=== PATIENT | male | born 1975 | race Hispanic/Latino ===

== ENCOUNTER 2017-05-15 10:24 | Inpatient (IN) | payer MEDICAID, OTHER ==
[~2017-05-15] VITALS: Ht 177.8 cm; Wt 117.9 kg
[2017-05-15] VITALS (15 sets, daily range): BP systolic 55–150; BP diastolic 32–89
[2017-05-15 10:47] LABS: BASOPHILS % (AUTO) 0.2 % (0.0-5.0); EOSINOPHILS % (AUTO) 1.1 % (0.0-8.0); HEMATOCRIT 25.6 % (42-54); LYMPHOCYTES % (AUTO) 33.1 % (21.0-51.0); MEAN CORPUSCULAR HEMOGLOBIN 23.3 pg (27.0-33.0); MEAN CORPUSCULAR HGB CONC 31.2 g/dL (32.0-36.0); MEAN CORPUSCULAR VOLUME 74.8 fL (79-99); MONOCYTES % (AUTO) 6.2 % (3.0-13.0); NEUTROPHILS % (AUTO) 59.4 % (40.0-77.0); PLATELET COUNT (AUTO) 75 K/uL (130-400); RED BLOOD CELL COUNT(AUTO) 3.43 MIL/uL (4.50-6.20); RED CELL DISTRIBUTION WIDTH 17.9 % (11.0-15.5); WHITE BLOOD COUNT (AUTO) 4.6 K/uL (4.8-10.8)
[2017-05-15] MEDS ORDERED: PHYTONADIONE 10 MG/1 ML AMP ONE (10:56)
[2017-05-15 10:58] LABS: CREATININE 0.8 mg/dL (0.5-1.5); POTASSIUM 4.1 mmol/L (3.5-5.1)
[2017-05-15 11:11] LABS: ALBUMIN 2.1 g/dL (3.5-5.0); BILIRUBIN,TOTAL 0.7 mg/dL (0.2-1.0); CREATINE KINASE MB 2.5 ng/mL (0.5-3.6); TOTAL PROTEIN, SERUM 6.3 g/dL (6.0-8.3)
[2017-05-15] MEDS ORDERED: SUCCINYLCHOLINE CHLORIDE 20 MG/ML 10 ML VIAL IVP ONE (12:00)
[2017-05-15] MEDS ORDERED: ROCURONIUM BROMIDE 10MG/1ML 5ML VL IV ONE (12:00)
[2017-05-15] MEDS ORDERED: ETOMIDATE 2 MG/ML 10 ML VIAL IVP ONE (12:00)
[2017-05-15] MEDS ORDERED: OCTREOTIDE ACETATE 100 MCG/ML AMP ONE (12:40)
[2017-05-15] MEDS ORDERED: ONDANSETRON HCL 4 MG/2 ML VIAL ONE ×2 (12:43→13:26)
[2017-05-15 12:51] LABS: INR 1.39 (0.85-1.15); PARTIAL THROMBOPLASTIN TIME 25.5 SEC (26.3-35.5); PROTHROMBIN TIME 14.5 SEC (9.6-11.6)
[2017-05-15] MEDS ORDERED: METOPROLOL TARTRATE 1 MG/ML 5ML VIAL IV ONE (12:56)
[2017-05-15 12:59] LABS: HEMATOCRIT 24.5 % (42-54)
[2017-05-15] MEDS ORDERED: SODIUM CHLORIDE 0.9% 50 ML IV ONE (14:02)
[2017-05-15] MEDS ORDERED: CEFTRIAXONE SODIUM 1 GM ONE (14:02)
[2017-05-15] MEDS ORDERED: PROPOFOL 1000 MG/100 ML 100 ML IV ONE (14:32)
[2017-05-15] MEDS ORDERED: PHYTONADIONE 10 MG/1 ML AMP IV ONE (16:00)
[2017-05-15] MEDS ORDERED: THIAMINE HCL 100 MG/ML 2ML VIAL IVP SCH (16:15)
[2017-05-15] MEDS: WATER FOR INJECTION,STERILE 5 ML VIAL INJ SCH (16:30)
[2017-05-15] MEDS ORDERED: PHYTONADIONE 10 MG in SODIUM CHLORIDE 0.9% 50 ML IV SCH (16:30)
[2017-05-15] MEDS: CEFTRIAXONE SODIUM 1 GM IVP SCH (16:30)
[2017-05-15] MEDS: MIDAZOLAM 100MG-0.9% NS 100ML 100 ML IV PRN (16:56)
[2017-05-15] MEDS: FENTANYL 2500MCG+NS 250ML 250 ML IV PRN (16:56)
[2017-05-15] MEDS: PANTOPRAZOLE SODIUM 80 MG in SODIUM CHLORIDE 0.9% 100 ML IV SCH ×2 (16:57→21:55)
[2017-05-15] MEDS: OCTREOTIDE ACETATE 1,000 MCG in SODIUM CHLORIDE 0.9% 95 ML IV SCH (16:57)
[2017-05-15] MEDS: SODIUM CHLORIDE 0.9% 1000ML 1,000 ML IV SCH (16:58)
[2017-05-15 18:20] LABS: HEMATOCRIT 21.8 % (42-54); MEAN CORPUSCULAR HEMOGLOBIN 25.6 pg (27.0-33.0); MEAN CORPUSCULAR HGB CONC 31.7 g/dL (32.0-36.0); MEAN CORPUSCULAR VOLUME 80.7 fL (79-99); PLATELET COUNT (AUTO) 69 K/uL (130-400); RED CELL DISTRIBUTION WIDTH 17.8 % (11.0-15.5)
[2017-05-15] MEDS: FOLIC ACID 5 MG/ML 10 ML VIAL IV SCH (18:48)
[2017-05-15] MEDS: NOREPINEPHRINE 4MG/NS 250ML 250 ML IV SCH ×2 (18:53→22:08)
[2017-05-15] MEDS ORDERED: SODIUM CHLORIDE 0.9% 500ML 500 ML IV ONE (21:06)
[2017-05-16] VITALS (26 sets, daily range): BP systolic 86–119; BP diastolic 49–69
[2017-05-16] MEDS: SODIUM CHLORIDE 0.9% 1000ML 1,000 ML IV SCH (01:21)
[2017-05-16 01:55] LABS: HEMATOCRIT 28.2 % (42-54); MEAN CORPUSCULAR HGB CONC 31.2 g/dL (32.0-36.0); MEAN CORPUSCULAR VOLUME 83.3 fL (79-99); PLATELET COUNT (AUTO) 77 K/uL (130-400); RED BLOOD CELL COUNT(AUTO) 3.39 MIL/uL (4.50-6.20); RED CELL DISTRIBUTION WIDTH 17.4 % (11.0-15.5); WHITE BLOOD COUNT (AUTO) 11.7 K/uL (4.8-10.8)
[2017-05-16 03:46] LABS: HEMATOCRIT 27.1 % (42-54); MEAN CORPUSCULAR HGB CONC 33.6 g/dL (32.0-36.0); MEAN CORPUSCULAR VOLUME 80.2 fL (79-99); PLATELET COUNT (AUTO) 84 K/uL (130-400); RED BLOOD CELL COUNT(AUTO) 3.38 MIL/uL (4.50-6.20); RED CELL DISTRIBUTION WIDTH 17.6 % (11.0-15.5); WHITE BLOOD COUNT (AUTO) 12.5 K/uL (4.8-10.8)
[2017-05-16 04:08] LABS: INR 1.35 (0.85-1.15); PARTIAL THROMBOPLASTIN TIME 28.1 SEC (26.3-35.5); PROTHROMBIN TIME 14.1 SEC (9.6-11.6)
[2017-05-16 04:12] LABS: ALBUMIN 2.3 g/dL (3.5-5.0); BILIRUBIN,TOTAL 1.6 mg/dL (0.2-1.0); CREATININE 1.3 mg/dL (0.5-1.5); TOTAL PROTEIN, SERUM 5.9 g/dL (6.0-8.3)
[2017-05-16 04:15] LABS: POTASSIUM 6.6 mmol/L (3.5-5.1)
[2017-05-16 05:38] LABS: ABG BASE EXCESS -8.8 mmol/L (-2.0-3.0); ABG HCO3 17.1 mmol/L (21.0-28.0); ABG OXYGEN SATURATION 98.2 % (95.0-99.0); ABG PCO2 37 mmHg (35-48)
[2017-05-16] MEDS: DEXTROSE 50%-WATER 25 GM/50 ML VIAL IV SCH (06:00)
[2017-05-16] MEDS ORDERED: SODIUM BICARB 50MEQ 50ML VIAL IV SCH (06:15)
[2017-05-16] MEDS ORDERED: SODIUM BICARB 50MEQ 50ML VIAL ONE (06:21)
[2017-05-16] MEDS ORDERED: DEXTROSE 50%-WATER 50 ML DISP.SYRIN IV ONE (06:22)
[2017-05-16] MEDS: INSULIN HUMULIN R 100 UNIT/ML 3ML IV SCH (06:32)
[2017-05-16] MEDS: NOREPINEPHRINE 4MG/NS 250ML 250 ML IV SCH ×2 (07:07→20:49)
[2017-05-16 07:45] LABS: POTASSIUM 6.6 mmol/L (3.5-5.1)
[2017-05-16] MEDS ORDERED: SODIUM POLYSTYRENE SULFONATE 15 GM/60 ML ML RC ONE (08:15)
[2017-05-16] MEDS ORDERED: CALCIUM GLUCONATE 1 GM/10 ML VIAL IV ONE (08:30)
[2017-05-16] MEDS ORDERED: SODIUM BICARB 50MEQ 50ML VIAL IV ONE (08:30)
[2017-05-16] MEDS ORDERED: CALCIUM GLUCONATE 1 GM in SODIUM CHLORIDE 0.9% 50 ML IV SCH (08:30)
[2017-05-16] MEDS ORDERED: DEXTROSE 5 % AND 0.9 % NACL 1,000 ML IV ONE (08:30)
[2017-05-16] MEDS: DEXTROSE 5 %-0.45 % NACL 1,000 ML IV SCH ×2 (08:33→21:58)
[2017-05-16 08:40] LABS: HEMATOCRIT 25.1 % (42-54); MEAN CORPUSCULAR HEMOGLOBIN 25.6 pg (27.0-33.0); MEAN CORPUSCULAR HGB CONC 32.2 g/dL (32.0-36.0); MEAN CORPUSCULAR VOLUME 79.6 fL (79-99); PLATELET COUNT (AUTO) 76 K/uL (130-400); RED BLOOD CELL COUNT(AUTO) 3.16 MIL/uL (4.50-6.20); RED CELL DISTRIBUTION WIDTH 17.5 % (11.0-15.5); WHITE BLOOD COUNT (AUTO) 11.8 K/uL (4.8-10.8)
[2017-05-16] MEDS: FOLIC ACID 5 MG/ML 10 ML VIAL IV SCH (09:10)
[2017-05-16] MEDS: PANTOPRAZOLE SODIUM 80 MG in SODIUM CHLORIDE 0.9% 100 ML IV SCH ×2 (09:10→20:55)
[2017-05-16] MEDS ORDERED: COMPOUND IV REFRIGERATED 1 EACH IVSOLN MISC PRN (09:30)
[2017-05-16] MEDS ORDERED: GLUCAGON 1MG KIT 1 MG ML IM PRN (11:30)
[2017-05-16] MEDS ORDERED: DEXTROSE 50%-WATER 50 ML DISP.SYRIN IV PRN (11:30)
[2017-05-16] MEDS: INSULIN HUMULIN R 100 UNIT/ML 3ML SQ SCH ×2 (12:09→17:58)
[2017-05-16 12:33] LABS: HEMATOCRIT 23.5 % (42-54); MEAN CORPUSCULAR HEMOGLOBIN 26.5 pg (27.0-33.0); MEAN CORPUSCULAR HGB CONC 33.1 g/dL (32.0-36.0); MEAN CORPUSCULAR VOLUME 80.1 fL (79-99); PLATELET COUNT (AUTO) 94 K/uL (130-400); RED BLOOD CELL COUNT(AUTO) 2.93 MIL/uL (4.50-6.20); RED CELL DISTRIBUTION WIDTH 17.1 % (11.0-15.5); WHITE BLOOD COUNT (AUTO) 13.4 K/uL (4.8-10.8)
[2017-05-16] MEDS: MIDAZOLAM 100MG-0.9% NS 100ML 100 ML IV PRN (13:31)
[2017-05-16] MEDS ORDERED: CEFTRIAXONE 1GM/D5W 50ML 50 ML IV SCH (16:00)
[2017-05-16] MEDS: WATER FOR INJECTION,STERILE 5 ML VIAL INJ SCH (16:02)
[2017-05-16] MEDS: CEFTRIAXONE SODIUM 1 GM IVP SCH (16:02)
[2017-05-16 19:51] LABS: HEMATOCRIT 25.4 % (42-54); MEAN CORPUSCULAR HEMOGLOBIN 26.7 pg (27.0-33.0); MEAN CORPUSCULAR HGB CONC 33.4 g/dL (32.0-36.0); MEAN CORPUSCULAR VOLUME 79.9 fL (79-99); PLATELET COUNT (AUTO) 116 K/uL (130-400); RED BLOOD CELL COUNT(AUTO) 3.18 MIL/uL (4.50-6.20); RED CELL DISTRIBUTION WIDTH 17.9 % (11.0-15.5); WHITE BLOOD COUNT (AUTO) 14.5 K/uL (4.8-10.8)
[2017-05-16] MEDS: OCTREOTIDE ACETATE 1,000 MCG in SODIUM CHLORIDE 0.9% 95 ML IV SCH (20:55)
[2017-05-16] MEDS: FENTANYL 2500MCG+NS 250ML 250 ML IV PRN (22:31)
[2017-05-17] VITALS (24 sets, daily range): BP systolic 97–123; BP diastolic 61–72
[2017-05-17] MEDS: INSULIN HUMULIN R 100 UNIT/ML 3ML SQ SCH ×5 (00:37→23:54)
[2017-05-17 00:52] LABS: HEMATOCRIT 22.4 % (42-54); MEAN CORPUSCULAR HEMOGLOBIN 26.5 pg (27.0-33.0); MEAN CORPUSCULAR HGB CONC 33.3 g/dL (32.0-36.0); MEAN CORPUSCULAR VOLUME 79.5 fL (79-99); PLATELET COUNT (AUTO) 86 K/uL (130-400); RED BLOOD CELL COUNT(AUTO) 2.81 MIL/uL (4.50-6.20); WHITE BLOOD COUNT (AUTO) 12.4 K/uL (4.8-10.8)
[2017-05-17] MEDS: NOREPINEPHRINE 4MG/NS 250ML 250 ML IV SCH ×3 (01:43→11:09)
[2017-05-17 04:11] LABS: BASOPHILS % (AUTO) 0.1 % (0.0-5.0); EOSINOPHILS % (AUTO) 0.9 % (0.0-8.0); LYMPHOCYTES % (AUTO) 15.3 % (21.0-51.0); MEAN CORPUSCULAR HEMOGLOBIN 27.3 pg (27.0-33.0); MEAN CORPUSCULAR HGB CONC 34.6 g/dL (32.0-36.0); MEAN CORPUSCULAR VOLUME 78.8 fL (79-99); MONOCYTES % (AUTO) 14.1 % (3.0-13.0); NEUTROPHILS % (AUTO) 69.6 % (40.0-77.0); PLATELET COUNT (AUTO) 99 K/uL (130-400); RED BLOOD CELL COUNT(AUTO) 2.91 MIL/uL (4.50-6.20); RED CELL DISTRIBUTION WIDTH 18.1 % (11.0-15.5); WHITE BLOOD COUNT (AUTO) 13.2 K/uL (4.8-10.8)
[2017-05-17 04:26] LABS: ALBUMIN 2.1 g/dL (3.5-5.0); BILIRUBIN,TOTAL 1.3 mg/dL (0.2-1.0); CREATININE 1.3 mg/dL (0.5-1.5); POTASSIUM 4.8 mmol/L (3.5-5.1); TOTAL PROTEIN, SERUM 5.6 g/dL (6.0-8.3)
[2017-05-17] MEDS: DEXTROSE 50%-WATER 25 GM/50 ML VIAL IV SCH (05:33)
[2017-05-17] MEDS: INSULIN HUMULIN R 100 UNIT/ML 3ML IV SCH (05:33)
[2017-05-17] MEDS: PANTOPRAZOLE SODIUM 80 MG in SODIUM CHLORIDE 0.9% 100 ML IV SCH ×2 (05:33→14:50)
[2017-05-17 07:02] LABS: INR 1.34 (0.85-1.15); PARTIAL THROMBOPLASTIN TIME 28.9 SEC (26.3-35.5)
[2017-05-17] MEDS: FOLIC ACID 5 MG/ML 10 ML VIAL IV SCH (09:12)
[2017-05-17] MEDS: MIDAZOLAM 100MG-0.9% NS 100ML 100 ML IV PRN ×2 (09:13→19:51)
[2017-05-17] MEDS: DEXTROSE 5 %-0.45 % NACL 1,000 ML IV SCH ×2 (11:06→23:54)
[2017-05-17] MEDS: LACTULOSE 20 GM/30 ML UDCUP NG SCH ×2 (15:45→22:12)
[2017-05-17] MEDS: WATER FOR INJECTION,STERILE 5 ML VIAL INJ SCH (15:57)
[2017-05-17] MEDS: CEFTRIAXONE SODIUM 1 GM IVP SCH (15:57)
[2017-05-17] MEDS: FENTANYL 2500MCG+NS 250ML 250 ML IV PRN (19:51)
[2017-05-18] VITALS (24 sets, daily range): BP systolic 101–137; BP diastolic 53–77
[2017-05-18] MEDS: PANTOPRAZOLE SODIUM IV SCH ×2 (00:45→09:18)
[2017-05-18] MEDS: DEXTROSE 5% IV SCH ×2 (00:45→09:18)
[2017-05-18] MEDS: WATER IV SCH ×2 (00:45→09:18)
[2017-05-18 03:27] LABS: BASOPHILS % (AUTO) 0.1 % (0.0-5.0); EOSINOPHILS % (AUTO) 0.9 % (0.0-8.0); HEMATOCRIT 22.1 % (42-54); LYMPHOCYTES % (AUTO) 15.5 % (21.0-51.0); MEAN CORPUSCULAR HEMOGLOBIN 27.4 pg (27.0-33.0); MEAN CORPUSCULAR HGB CONC 33.9 g/dL (32.0-36.0); MEAN CORPUSCULAR VOLUME 80.8 fL (79-99); MONOCYTES % (AUTO) 12.7 % (3.0-13.0); NEUTROPHILS % (AUTO) 70.8 % (40.0-77.0); PLATELET COUNT (AUTO) 72 K/uL (130-400); RED BLOOD CELL COUNT(AUTO) 2.74 MIL/uL (4.50-6.20); RED CELL DISTRIBUTION WIDTH 18.6 % (11.0-15.5); WHITE BLOOD COUNT (AUTO) 9.5 K/uL (4.8-10.8)
[2017-05-18 03:52] LABS: CREATININE 1.5 mg/dL (0.5-1.5); POTASSIUM 4.4 mmol/L (3.5-5.1)
[2017-05-18] MEDS: LACTULOSE 20 GM/30 ML UDCUP NG SCH ×3 (05:33→21:06)
[2017-05-18] MEDS: INSULIN HUMULIN R 100 UNIT/ML 3ML SQ SCH ×4 (06:14→23:57)
[2017-05-18] MEDS: FOLIC ACID 5 MG/ML 10 ML VIAL IV SCH (09:18)
[2017-05-18] MEDS: DEXTROSE 5 %-0.45 % NACL 1,000 ML IV SCH (12:53)
[2017-05-18] MEDS: CEFTRIAXONE SODIUM 1 GM IVP SCH (16:20)
[2017-05-18] MEDS: WATER FOR INJECTION,STERILE 5 ML VIAL INJ SCH (16:20)
[2017-05-18] MEDS: PANTOPRAZOLE 40 MG/VIAL IVP SCH (21:05)
[2017-05-18] MEDS ORDERED: INSULIN HUMULIN R 100 UNIT/ML 3ML SQ ONE (23:41)
[2017-05-19] VITALS (24 sets, daily range): BP systolic 119–150; BP diastolic 61–82
[2017-05-19] MEDS: DEXTROSE 5 %-0.45 % NACL 1,000 ML IV SCH (01:38)
[2017-05-19 03:50] LABS: HEMATOCRIT 21.2 % (42-54); MEAN CORPUSCULAR HEMOGLOBIN 26.6 pg (27.0-33.0); MEAN CORPUSCULAR HGB CONC 32.6 g/dL (32.0-36.0); MEAN CORPUSCULAR VOLUME 81.7 fL (79-99); PLATELET COUNT (AUTO) 60 K/uL (130-400); RED BLOOD CELL COUNT(AUTO) 2.59 MIL/uL (4.50-6.20); RED CELL DISTRIBUTION WIDTH 18.9 % (11.0-15.5); WHITE BLOOD COUNT (AUTO) 6.4 K/uL (4.8-10.8)
[2017-05-19 04:26] LABS: LYMPHOCYTES % (MANUAL) 10 % (22-44); MAN.DIFF COMMENT-IMPRESSION MANUAL DIFFERENTIAL; MONOCYTES % (MANUAL) 3 % (2-9); PLATELET MORPHOLOGY COMMENT DECREASED; SEGMENTED NEUTROPHILS % 87 % (40-70)
[2017-05-19] MEDS: LACTULOSE 20 GM/30 ML UDCUP NG SCH ×3 (06:33→21:09)
[2017-05-19] MEDS: INSULIN HUMULIN R 100 UNIT/ML 3ML SQ SCH ×3 (06:41→18:05)
[2017-05-19] MEDS ORDERED: SODIUM CHLORIDE 0.9% 500ML 500 ML IV ONE (08:29)
[2017-05-19] MEDS: FOLIC ACID 5 MG/ML 10 ML VIAL IV SCH (09:35)
[2017-05-19] MEDS: PANTOPRAZOLE 40 MG/VIAL IVP SCH ×2 (09:35→21:09)
[2017-05-19] MEDS ORDERED: SODIUM CHLORIDE 0.9% 1000ML 1,000 ML IV ONE (15:09)
[2017-05-19] MEDS: SODIUM CHLORIDE 0.9% 1000ML 1,000 ML IV SCH (15:11)
[2017-05-19] MEDS: CEFTRIAXONE SODIUM 1 GM IVP SCH (15:11)
[2017-05-19] MEDS: WATER FOR INJECTION,STERILE 5 ML VIAL INJ SCH (15:11)
[2017-05-19 15:13] LABS: HEMATOCRIT 24.9 % (42-54)
[2017-05-19 16:29] LABS: ABG BASE EXCESS 2.2 mmol/L (-2.0-3.0); ABG HCO3 25.8 mmol/L (21.0-28.0); ABG OXYGEN SATURATION 98.3 % (95.0-99.0); ABG PCO2 37 mmHg (35-48)
[2017-05-19] MEDS ORDERED: SODIUM CHLORIDE 0.9% 10 ML VIAL ONE (20:35)
[2017-05-19] MEDS: MIDAZOLAM 100MG-0.9% NS 100ML 100 ML IV PRN (22:33)
[2017-05-20] VITALS (23 sets, daily range): BP systolic 110–146; BP diastolic 56–114
[2017-05-20] MEDS: INSULIN HUMULIN R 100 UNIT/ML 3ML SQ SCH ×4 (00:21→18:51)
[2017-05-20] MEDS: SODIUM CHLORIDE 0.9% 1000ML 1,000 ML IV SCH ×2 (03:09→17:09)
[2017-05-20 03:58] LABS: MEAN CORPUSCULAR HEMOGLOBIN 27.2 pg (27.0-33.0); MEAN CORPUSCULAR HGB CONC 32.6 g/dL (32.0-36.0); MEAN CORPUSCULAR VOLUME 83.6 fL (79-99); PLATELET COUNT (AUTO) 58 K/uL (130-400); RED BLOOD CELL COUNT(AUTO) 2.75 MIL/uL (4.50-6.20); RED CELL DISTRIBUTION WIDTH 18.5 % (11.0-15.5); WHITE BLOOD COUNT (AUTO) 7.6 K/uL (4.8-10.8)
[2017-05-20 04:22] LABS: ALBUMIN 1.8 g/dL (3.5-5.0); BILIRUBIN,TOTAL 1.9 mg/dL (0.2-1.0); CREATININE 1.3 mg/dL (0.5-1.5); POTASSIUM 3.5 mmol/L (3.5-5.1); TOTAL PROTEIN, SERUM 5.4 g/dL (6.0-8.3)
[2017-05-20 04:32] LABS: LYMPHOCYTES % (MANUAL) 4 % (22-44); METAMYELOCYTES % 1 % (0-0); MONOCYTES % (MANUAL) 4 % (2-9); SEGMENTED NEUTROPHILS % 91 % (40-70)
[2017-05-20 04:33] LABS: MAN.DIFF COMMENT-IMPRESSION MANUAL DIFFERENTIAL; PLATELET MORPHOLOGY COMMENT DECREASED
[2017-05-20] MEDS: LACTULOSE 20 GM/30 ML UDCUP NG SCH ×3 (06:25→21:52)
[2017-05-20] MEDS: PANTOPRAZOLE 40 MG/VIAL IVP SCH ×2 (09:16→21:52)
[2017-05-20] MEDS: FOLIC ACID 5 MG/ML 10 ML VIAL IV SCH (09:58)
[2017-05-20] MEDS: WATER FOR INJECTION,STERILE 5 ML VIAL INJ SCH (17:08)
[2017-05-20] MEDS: CEFTRIAXONE SODIUM 1 GM IVP SCH (17:08)
[2017-05-21] VITALS (43 sets, daily range): BP systolic 56–158; BP diastolic 31–72
[2017-05-21] MEDS: INSULIN HUMULIN R 100 UNIT/ML 3ML SQ SCH ×3 (00:46→12:45)
[2017-05-21 03:53] LABS: HEMATOCRIT 23.7 % (42-54); MEAN CORPUSCULAR HEMOGLOBIN 27.5 pg (27.0-33.0); MEAN CORPUSCULAR HGB CONC 32.5 g/dL (32.0-36.0); MEAN CORPUSCULAR VOLUME 84.5 fL (79-99); NUCLEATED RED BLOOD CELLS 0.2 % (0.0-0.19); PLATELET COUNT (AUTO) 58 K/uL (130-400); RED CELL DISTRIBUTION WIDTH 19.3 % (11.0-15.5); WHITE BLOOD COUNT (AUTO) 11.1 K/uL (4.8-10.8)
[2017-05-21 04:16] LABS: ALBUMIN 1.8 g/dL (3.5-5.0); CREATININE 1.5 mg/dL (0.5-1.5); POTASSIUM 3.5 mmol/L (3.5-5.1); TOTAL PROTEIN, SERUM 5.7 g/dL (6.0-8.3)
[2017-05-21] MEDS: LACTULOSE 20 GM/30 ML UDCUP NG SCH ×3 (05:46→21:10)
[2017-05-21] MEDS: SODIUM CHLORIDE 0.9% 1000ML 1,000 ML IV SCH ×2 (05:49→19:15)
[2017-05-21] MEDS: PANTOPRAZOLE 40 MG/VIAL IVP SCH ×2 (09:04→21:11)
[2017-05-21] MEDS: FOLIC ACID 5 MG/ML 10 ML VIAL IV SCH (09:19)
[2017-05-21] MEDS ORDERED: VANCOMYCIN 1GM+NS 250ML 250 ML IV SCH (09:30)
[2017-05-21] MEDS ORDERED: ACETAMINOPHEN ELIXIR 650 MG/20.3 ML UDCUP NG PRN (09:30)
[2017-05-21] MEDS ORDERED: VANCOMYCIN PROTOCOL PER PHARMACY IV SCH (09:30)
[2017-05-21] MEDS ORDERED: COMPOUND IV REFRIGERATED 1 EACH IVSOLN MISC PRN (09:45)
[2017-05-21] MEDS: VANCOMYCIN 1.5 GM in SODIUM CHLORIDE 0.9% 250 ML IV SCH ×2 (10:09→22:00)
[2017-05-21] MEDS: FLUCONAZOLE 200 MG/NS 100 ML 100 ML IV SCH (10:09)
[2017-05-21] MEDS: LEVOFLOXACIN 750 MG/D5W 150 ML 150 ML IV SCH (10:09)
[2017-05-21] MEDS: MEROPENEM 500 MG VIAL IVP SCH ×2 (13:30→21:11)
[2017-05-21] MEDS ORDERED: MEROPENEM 500MG+NS 50ML 50 ML IV SCH (14:00)
[2017-05-21 14:19] LABS: HEMATOCRIT 20.3 % (42-54)
[2017-05-21 15:07] LABS: INR 1.78 (0.85-1.15); PROTHROMBIN TIME 18.5 SEC (9.6-11.6)
[2017-05-21] MEDS ORDERED: SODIUM CHLORIDE 0.9% 500ML 500 ML IV ONE ×2 (16:18→16:26)
[2017-05-21] MEDS: NOREPINEPHRINE 4MG/NS 250ML 250 ML IV SCH ×2 (17:26→19:14)
[2017-05-21] MEDS: MIDAZOLAM 100MG-0.9% NS 100ML 100 ML IV PRN (17:27)
[2017-05-21] MEDS: FENTANYL 2500MCG+NS 250ML 250 ML IV PRN (17:27)
[2017-05-21] MEDS: VASOPRESSIN 125 UNITS in SODIUM CHLORIDE 0.9% 250 ML IV PRN (17:31)
[2017-05-21] MEDS: INSULIN REGULAR, HUMAN 3ML 100 UNIT in SODIUM CHLORIDE 0.9% 99 ML IV PRN ×2 (17:33)
[2017-05-21] MEDS ORDERED: PHARMACY COMMUNICATION MISC SCH (19:30)
[2017-05-21] MEDS: NOREPINEPHRINE BITARTRATE 8 MG in SODIUM CHLORIDE 0.9% 250 ML IV SCH (20:09)
[2017-05-22] VITALS (37 sets, daily range): BP systolic 93–157; BP diastolic 45–92
[2017-05-22] MEDS: NOREPINEPHRINE BITARTRATE 8 MG in SODIUM CHLORIDE 0.9% 250 ML IV SCH ×3 (00:33→12:14)
[2017-05-22] MEDS: MEROPENEM 500 MG VIAL IVP SCH ×2 (05:13→13:34)
[2017-05-22] MEDS: LACTULOSE 20 GM/30 ML UDCUP NG SCH ×2 (05:13→16:45)
[2017-05-22 05:36] LABS: HEMATOCRIT 23.2 % (42-54); MEAN CORPUSCULAR HEMOGLOBIN 26.9 pg (27.0-33.0); MEAN CORPUSCULAR HGB CONC 32.1 g/dL (32.0-36.0); MEAN CORPUSCULAR VOLUME 83.7 fL (79-99); NUCLEATED RED BLOOD CELLS 0.1 % (0.0-0.19); PLATELET COUNT (AUTO) 54 K/uL (130-400); RED BLOOD CELL COUNT(AUTO) 2.77 MIL/uL (4.50-6.20); RED CELL DISTRIBUTION WIDTH 18.5 % (11.0-15.5); WHITE BLOOD COUNT (AUTO) 9.5 K/uL (4.8-10.8)
[2017-05-22] MEDS: INSULIN REGULAR, HUMAN 3ML 100 UNIT in SODIUM CHLORIDE 0.9% 99 ML IV PRN ×2 (05:39)
[2017-05-22 05:45] LABS: CREATININE 2.2 mg/dL (0.5-1.5); POTASSIUM 3.7 mmol/L (3.5-5.1)
[2017-05-22 05:50] LABS: INR 1.62 (0.85-1.15); PARTIAL THROMBOPLASTIN TIME 30.5 SEC (26.3-35.5); PROTHROMBIN TIME 16.9 SEC (9.6-11.6)
[2017-05-22] MEDS: LEVOFLOXACIN 750 MG/D5W 150 ML 150 ML IV SCH (09:37)
[2017-05-22] MEDS: FLUCONAZOLE 200 MG/NS 100 ML 100 ML IV SCH (09:37)
[2017-05-22] MEDS: 1/2 NORMAL SALINE 1,000 ML IV SCH ×2 (09:37→20:00)
[2017-05-22] MEDS: PANTOPRAZOLE 40 MG/VIAL IVP SCH (09:37)
[2017-05-22] MEDS: MIDODRINE HCL 5 MG TABLET PO SCH ×2 (09:38→13:35)
[2017-05-22] MEDS: PHENYLEPHRINE HCL 50 MG in SODIUM CHLORIDE 0.9% 250 ML IV SCH (10:02)
[2017-05-22] MEDS: VANCOMYCIN 1.5 GM in SODIUM CHLORIDE 0.9% 250 ML IV SCH (11:43)
[2017-05-22] MEDS: ARTIFICAL TEARS SOL 15 ML OU SCH ×2 (12:15→18:15)
[2017-05-22] MEDS ORDERED: SODIUM CHLORIDE 0.9% 250 ML IV ONE (12:31)
[2017-05-22] MEDS: PANTOPRAZOLE SODIUM 80 MG in SODIUM CHLORIDE 0.9% 100 ML IV SCH (15:14)
[2017-05-22] MEDS: OCTREOTIDE ACETATE 1,000 MCG in SODIUM CHLORIDE 0.9% 95 ML IV SCH (15:14)
[2017-05-22] MEDS: FOLIC ACID 5 MG/ML 10 ML VIAL IV SCH (17:51)
[2017-05-22] MEDS: VASOPRESSIN 125 UNITS in SODIUM CHLORIDE 0.9% 250 ML IV PRN (17:52)
[2017-05-23] VITALS (36 sets, daily range): BP systolic 87–125; BP diastolic 46–74
[2017-05-23] MEDS: ARTIFICAL TEARS SOL 15 ML OU SCH ×5 (00:15→23:38)
[2017-05-23] MEDS: 1/2 NORMAL SALINE 1,000 ML IV SCH ×3 (01:00→18:02)
[2017-05-23] MEDS: FENTANYL 2500MCG+NS 250ML 250 ML IV PRN (01:27)
[2017-05-23 03:58] LABS: MEAN CORPUSCULAR HEMOGLOBIN 26.9 pg (27.0-33.0); MEAN CORPUSCULAR VOLUME 84.2 fL (79-99); NUCLEATED RED BLOOD CELLS 0.2 % (0.0-0.19); PLATELET COUNT (AUTO) 47 K/uL (130-400); RED BLOOD CELL COUNT(AUTO) 2.36 MIL/uL (4.50-6.20); RED CELL DISTRIBUTION WIDTH 17.7 % (11.0-15.5); WHITE BLOOD COUNT (AUTO) 7.7 K/uL (4.8-10.8)
[2017-05-23 04:07] LABS: HEMATOCRIT 19.9 % (42-54)
[2017-05-23 04:08] LABS: INR 1.73 (0.85-1.15); PARTIAL THROMBOPLASTIN TIME 31.5 SEC (26.3-35.5)
[2017-05-23 04:10] LABS: ALANINE AMINOTRANSFERASE 170 U/L (12-78); ALBUMIN 1.4 g/dL (3.5-5.0); ASPARTATE AMINOTRANSFERASE 286 U/L (10-37); BILIRUBIN,TOTAL 1.3 mg/dL (0.2-1.0); CARBON DIOXIDE 25 mmol/L (21-32); CREATININE 1.9 mg/dL (0.5-1.5); GLOMERULAR FILTR. RATE CALC 42 mL/min (>60); GLUCOSE,RANDOM 227 mg/dL (70-105); TOTAL PROTEIN, SERUM 4.5 g/dL (6.0-8.3)
[2017-05-23 04:18] LABS: CHLORIDE > 130 mmol/L (101-111); SODIUM SERUM 161 mmol/L (136-145)
[2017-05-23 04:19] LABS: UREA NITROGEN, BLOOD 89 mg/dL (7-18)
[2017-05-23] MEDS ORDERED: SODIUM CHLORIDE 0.9% 250 ML IV ONE ×2 (04:54→16:20)
[2017-05-23] MEDS: MEROPENEM 500 MG VIAL IVP SCH ×4 (06:00→22:06)
[2017-05-23] MEDS: LACTULOSE 20 GM/30 ML UDCUP NG SCH ×4 (06:00→22:07)
[2017-05-23] MEDS: MIDODRINE HCL 5 MG TABLET PO SCH ×4 (06:09→20:23)
[2017-05-23] MEDS: OCTREOTIDE ACETATE 1,000 MCG in SODIUM CHLORIDE 0.9% 95 ML IV SCH (07:26)
[2017-05-23] MEDS: LEVOFLOXACIN 750 MG/D5W 150 ML 150 ML IV SCH (07:37)
[2017-05-23] MEDS: FLUCONAZOLE 200 MG/NS 100 ML 100 ML IV SCH (09:10)
[2017-05-23] MEDS ORDERED: PHYTONADIONE 10 MG in SODIUM CHLORIDE 0.9% 50 ML IV SCH (10:00)
[2017-05-23] MEDS: NOREPINEPHRINE BITARTRATE 8 MG in SODIUM CHLORIDE 0.9% 250 ML IV SCH (13:00)
[2017-05-23] MEDS: PHENYLEPHRINE HCL 50 MG in SODIUM CHLORIDE 0.9% 250 ML IV SCH (13:00)
[2017-05-23] MEDS: PANTOPRAZOLE SODIUM 80 MG in SODIUM CHLORIDE 0.9% 100 ML IV SCH (13:00)
[2017-05-23 13:18] LABS: ABG BASE EXCESS -1.1 mmol/L (-2.0-3.0); ABG HCO3 24.1 mmol/L (21.0-28.0); ABG PCO2 42 mmHg (35-48)
[2017-05-23 14:31] LABS: MEAN CORPUSCULAR HEMOGLOBIN 26.8 pg (27.0-33.0); MEAN CORPUSCULAR HGB CONC 31.9 g/dL (32.0-36.0); MEAN CORPUSCULAR VOLUME 84.2 fL (79-99); NUCLEATED RED BLOOD CELLS 0.1 % (0.0-0.19); PLATELET COUNT (AUTO) 42 K/uL (130-400); RED CELL DISTRIBUTION WIDTH 17.2 % (11.0-15.5); WHITE BLOOD COUNT (AUTO) 6.1 K/uL (4.8-10.8)
[2017-05-23 15:07] LABS: HEMATOCRIT 20.2 % (42-54)
[2017-05-23] MEDS: INSULIN REGULAR, HUMAN 3ML 100 UNIT in SODIUM CHLORIDE 0.9% 99 ML IV PRN ×2 (17:56)
[2017-05-23] MEDS: FOLIC ACID 5 MG/ML 10 ML VIAL IV SCH (18:51)
[2017-05-23] MEDS: MIDAZOLAM 100MG-0.9% NS 100ML 100 ML IV PRN (20:15)
[2017-05-24] VITALS (27 sets, daily range): BP systolic 95–131; BP diastolic 44–79
[2017-05-24] MEDS: PANTOPRAZOLE SODIUM 80 MG in SODIUM CHLORIDE 0.9% 100 ML IV SCH ×3 (00:09→20:16)
[2017-05-24] MEDS: FENTANYL 2500MCG+NS 250ML 250 ML IV PRN (01:09)
[2017-05-24] MEDS: 1/2 NORMAL SALINE 1,000 ML IV SCH ×3 (02:07→13:37)
[2017-05-24] MEDS: NOREPINEPHRINE BITARTRATE 8 MG in SODIUM CHLORIDE 0.9% 250 ML IV SCH ×2 (04:20→14:22)
[2017-05-24] MEDS: MEROPENEM 500 MG VIAL IVP SCH ×3 (05:48→21:04)
[2017-05-24] MEDS: ARTIFICAL TEARS SOL 15 ML OU SCH ×3 (05:49→17:21)
[2017-05-24] MEDS: LACTULOSE 20 GM/30 ML UDCUP NG SCH ×3 (05:49→20:15)
[2017-05-24 05:52] LABS: HEMATOCRIT 22.8 % (42-54); MEAN CORPUSCULAR HEMOGLOBIN 27.6 pg (27.0-33.0); MEAN CORPUSCULAR VOLUME 83.6 fL (79-99); NUCLEATED RED BLOOD CELLS 0.4 % (0.0-0.19); PLATELET COUNT (AUTO) 40 K/uL (130-400); RED BLOOD CELL COUNT(AUTO) 2.72 MIL/uL (4.50-6.20); WHITE BLOOD COUNT (AUTO) 6.3 K/uL (4.8-10.8)
[2017-05-24 06:09] LABS: INR 1.41 (0.85-1.15); PARTIAL THROMBOPLASTIN TIME 29.1 SEC (26.3-35.5); PROTHROMBIN TIME 14.7 SEC (9.6-11.6)
[2017-05-24 06:12] LABS: ALBUMIN 1.5 g/dL (3.5-5.0); BILIRUBIN,TOTAL 2.1 mg/dL (0.2-1.0); CREATININE 1.7 mg/dL (0.5-1.5); MAGNESIUM 2.3 mg/dL (1.80-2.40); PHOSPHORUS 3.6 mg/dL (2.5-4.9); POTASSIUM 4.9 mmol/L (3.5-5.1); TOTAL PROTEIN, SERUM 4.9 g/dL (6.0-8.3)
[2017-05-24] MEDS: OCTREOTIDE ACETATE 1,000 MCG in SODIUM CHLORIDE 0.9% 95 ML IV SCH (06:23)
[2017-05-24] MEDS: LEVOFLOXACIN 750 MG/D5W 150 ML 150 ML IV SCH (08:16)
[2017-05-24] MEDS: FLUCONAZOLE 200 MG/NS 100 ML 100 ML IV SCH (08:16)
[2017-05-24] MEDS: FOLIC ACID 5 MG/ML 10 ML VIAL IV SCH (08:16)
[2017-05-24] MEDS: MIDODRINE HCL 5 MG TABLET PO SCH ×3 (08:17→20:23)
[2017-05-24] MEDS: VANCOMYCIN 1.25 GM in SODIUM CHLORIDE 0.9% 250 ML IV SCH ×3 (08:48→21:05)
[2017-05-24] MEDS ORDERED: ALBUMIN (HUMAN) 5% 250 ML IV SCH (16:30)
[2017-05-24] MEDS: INSULIN REGULAR, HUMAN 3ML 100 UNIT in SODIUM CHLORIDE 0.9% 99 ML IV PRN ×2 (21:13)
[2017-05-25] VITALS (24 sets, daily range): BP systolic 91–124; BP diastolic 42–75
[2017-05-25] MEDS: 1/2 NORMAL SALINE 1,000 ML IV SCH ×3 (01:01→17:08)
[2017-05-25] MEDS: FENTANYL 2500MCG+NS 250ML 250 ML IV PRN (03:22)
[2017-05-25] MEDS: OCTREOTIDE ACETATE 1,000 MCG in SODIUM CHLORIDE 0.9% 95 ML IV SCH (03:28)
[2017-05-25 04:05] LABS: HEMATOCRIT 22.1 % (42-54); MEAN CORPUSCULAR HEMOGLOBIN 27.1 pg (27.0-33.0); MEAN CORPUSCULAR HGB CONC 32.2 g/dL (32.0-36.0); MEAN CORPUSCULAR VOLUME 84.2 fL (79-99); NUCLEATED RED BLOOD CELLS 0.3 % (0.0-0.19); PLATELET COUNT (AUTO) 36 K/uL (130-400); RED BLOOD CELL COUNT(AUTO) 2.62 MIL/uL (4.50-6.20); RED CELL DISTRIBUTION WIDTH 17.7 % (11.0-15.5); WHITE BLOOD COUNT (AUTO) 5.2 K/uL (4.8-10.8)
[2017-05-25 04:18] LABS: ALBUMIN 1.6 g/dL (3.5-5.0); BILIRUBIN,TOTAL 2.8 mg/dL (0.2-1.0); POTASSIUM 5.2 mmol/L (3.5-5.1); TOTAL PROTEIN, SERUM 4.9 g/dL (6.0-8.3)
[2017-05-25 05:02] LABS: BAND NEUTROPHILS % (MANUAL) 3 % (0-2); LYMPHOCYTES % (MANUAL) 11 % (22-44); MONOCYTES % (MANUAL) 6 % (2-9); SEGMENTED NEUTROPHILS % 80 % (40-70)
[2017-05-25 05:03] LABS: MAN.DIFF COMMENT-IMPRESSION MANUAL DIFFERENTIAL; PLATELET MORPHOLOGY COMMENT MARKED DECREASED
[2017-05-25] MEDS: MEROPENEM 500 MG VIAL IVP SCH ×3 (05:16→21:01)
[2017-05-25] MEDS: VANCOMYCIN 1.25 GM in SODIUM CHLORIDE 0.9% 250 ML IV SCH ×2 (05:17→14:00)
[2017-05-25] MEDS: ARTIFICAL TEARS SOL 15 ML OU SCH ×4 (05:18→17:08)
[2017-05-25] MEDS: MIDAZOLAM 100MG-0.9% NS 100ML 100 ML IV PRN (05:34)
[2017-05-25] MEDS: PANTOPRAZOLE SODIUM 80 MG in SODIUM CHLORIDE 0.9% 100 ML IV SCH (06:20)
[2017-05-25] MEDS: NOREPINEPHRINE BITARTRATE 8 MG in SODIUM CHLORIDE 0.9% 250 ML IV SCH ×2 (06:24→21:30)
[2017-05-25] MEDS: MIDODRINE HCL 5 MG TABLET PO SCH ×3 (08:48→21:00)
[2017-05-25] MEDS: VASOPRESSIN 125 UNITS in SODIUM CHLORIDE 0.9% 250 ML IV PRN (08:49)
[2017-05-25] MEDS: LACTULOSE 20 GM/30 ML UDCUP NG SCH (08:49)
[2017-05-25] MEDS: FLUCONAZOLE 200 MG/NS 100 ML 100 ML IV SCH (08:50)
[2017-05-25] MEDS: LEVOFLOXACIN 750 MG/D5W 150 ML 150 ML IV SCH (08:50)
[2017-05-25] MEDS: FOLIC ACID 5 MG/ML 10 ML VIAL IV SCH (14:27)
[2017-05-25] MEDS ORDERED: PROPOFOL 1000 MG/100 ML IV PRN (18:15)
[2017-05-25] MEDS: LACTULOSE 20 GM/30 ML UDCUP PO SCH (20:59)
[2017-05-25] MEDS: PANTOPRAZOLE 40 MG/VIAL IVP SCH (21:01)
[2017-05-26] VITALS (24 sets, daily range): BP systolic 101–133; BP diastolic 41–76
[2017-05-26] MEDS: 1/2 NORMAL SALINE 1,000 ML IV SCH ×2 (01:07→09:43)
[2017-05-26] MEDS: ARTIFICAL TEARS SOL 15 ML OU SCH ×4 (01:07→18:16)
[2017-05-26] MEDS: LACTULOSE 20 GM/30 ML UDCUP PO SCH ×4 (03:09→20:54)
[2017-05-26 03:56] LABS: HEMATOCRIT 21.6 % (42-54); MEAN CORPUSCULAR HEMOGLOBIN 28.1 pg (27.0-33.0); MEAN CORPUSCULAR HGB CONC 33.1 g/dL (32.0-36.0); MEAN CORPUSCULAR VOLUME 85.1 fL (79-99); NUCLEATED RED BLOOD CELLS 0.3 % (0.0-0.19); PLATELET COUNT (AUTO) 41 K/uL (130-400); RED BLOOD CELL COUNT(AUTO) 2.54 MIL/uL (4.50-6.20); RED CELL DISTRIBUTION WIDTH 17.9 % (11.0-15.5); WHITE BLOOD COUNT (AUTO) 5.7 K/uL (4.8-10.8)
[2017-05-26 04:09] LABS: ALBUMIN 1.5 g/dL (3.5-5.0); BILIRUBIN,TOTAL 2.4 mg/dL (0.2-1.0); CREATININE 2.7 mg/dL (0.5-1.5); POTASSIUM 5.5 mmol/L (3.5-5.1); TOTAL PROTEIN, SERUM 5.2 g/dL (6.0-8.3)
[2017-05-26 04:24] LABS: BAND NEUTROPHILS % (MANUAL) 9 % (0-2); EOSINOPHILS % (MANUAL) 6 % (1-6); LYMPHOCYTES % (MANUAL) 20 % (22-44); MAN.DIFF COMMENT-IMPRESSION MANUAL DIFFERENTIAL; MONOCYTES % (MANUAL) 4 % (2-9); PLATELET MORPHOLOGY COMMENT DECREASED; SEGMENTED NEUTROPHILS % 61 % (40-70)
[2017-05-26] MEDS: MEROPENEM 500 MG VIAL IVP SCH ×3 (05:47→20:54)
[2017-05-26] MEDS: LEVOFLOXACIN 750 MG/D5W 150 ML 150 ML IV SCH (09:17)
[2017-05-26] MEDS: FLUCONAZOLE 200 MG/NS 100 ML 100 ML IV SCH (09:17)
[2017-05-26] MEDS: MIDODRINE HCL 5 MG TABLET PO SCH ×3 (09:18→20:54)
[2017-05-26] MEDS: INSULIN REGULAR, HUMAN 3ML 100 UNIT in SODIUM CHLORIDE 0.9% 99 ML IV PRN ×2 (09:41)
[2017-05-26] MEDS: PANTOPRAZOLE 40 MG/VIAL IVP SCH ×2 (09:42→20:54)
[2017-05-26] MEDS: FOLIC ACID 5 MG/ML 10 ML VIAL IV SCH (09:42)
[2017-05-26] MEDS: DEXTROSE 5%-WATER 1,000 ML IV SCH ×2 (11:52→20:54)
[2017-05-27] VITALS (25 sets, daily range): BP systolic 82–132; BP diastolic 43–66
[2017-05-27] MEDS: ARTIFICAL TEARS SOL 15 ML OU SCH ×4 (00:28→17:12)
[2017-05-27] MEDS: LACTULOSE 20 GM/30 ML UDCUP PO SCH ×4 (02:58→20:37)
[2017-05-27 04:19] LABS: CREATININE 3.4 mg/dL (0.5-1.5)
[2017-05-27] MEDS: MEROPENEM 500 MG VIAL IVP SCH ×3 (05:59→22:31)
[2017-05-27] MEDS: DEXTROSE 5%-WATER 1,000 ML IV SCH ×2 (06:00→17:12)
[2017-05-27] MEDS: FLUCONAZOLE 200 MG/NS 100 ML 100 ML IV SCH (08:07)
[2017-05-27] MEDS: LEVOFLOXACIN 750 MG/D5W 150 ML 150 ML IV SCH (08:07)
[2017-05-27] MEDS: MIDODRINE HCL 5 MG TABLET PO SCH ×3 (08:08→20:37)
[2017-05-27] MEDS: FOLIC ACID 5 MG/ML 10 ML VIAL IV SCH (09:00)
[2017-05-27] MEDS: NOREPINEPHRINE BITARTRATE 8 MG in SODIUM CHLORIDE 0.9% 250 ML IV SCH (09:20)
[2017-05-27] MEDS: PANTOPRAZOLE 40 MG/VIAL IVP SCH ×2 (15:41→20:37)
[2017-05-27 17:34] LABS: APPEARANCE,URINE Turbid (CLEAR); BILIRUBIN,URINE Negative (NEGATIVE); GLUCOSE, URINE (UA) Negative (NEGATIVE); KETONES,URINE Negative (NEGATIVE); LEUKOCYTE ESTERASE ,URINE Moderate (NEGATIVE); NITRATE,URINE Positive (NEGATIVE); OCCULT BLOOD,URINE Small (NEGATIVE); PROTEIN,URINE Trace (NEGATIVE); UROBILINOGEN,URINE 0.2 mg/dL (0.2-1.0)
[2017-05-27 17:36] LABS: COLOR,URINE BROWN (YELLOW)
[2017-05-27 17:43] LABS: BACTERIA,URINE Moderate /HPF (None Seen); RBC,URINE 26-50 /HPF (0-1)
[2017-05-27 17:44] LABS: CREATININE,URINE RANDOM 88 mg/dL (30-135); FINE GRANULAR CASTS,URINE 26-50 /LPF (None Seen); MUCUS,URINE Moderate LPF (None Seen); SODIUM,URINE RANDOM 15 mmol/l (40-220)
[2017-05-28] VITALS (21 sets, daily range): BP systolic 105–127; BP diastolic 53–74
[2017-05-28] MEDS: ARTIFICAL TEARS SOL 15 ML OU SCH ×4 (01:46→17:52)
[2017-05-28] MEDS: DEXTROSE 5%-WATER 1,000 ML IV SCH ×2 (01:48→12:30)
[2017-05-28] MEDS: LACTULOSE 20 GM/30 ML UDCUP PO SCH (01:48)
[2017-05-28 04:06] LABS: MEAN CORPUSCULAR HEMOGLOBIN 28.2 pg (27.0-33.0); MEAN CORPUSCULAR HGB CONC 32.7 g/dL (32.0-36.0); MEAN CORPUSCULAR VOLUME 86.3 fL (79-99); NUCLEATED RED BLOOD CELLS 0.1 % (0.0-0.19); PLATELET COUNT (AUTO) 30 K/uL (130-400); RED BLOOD CELL COUNT(AUTO) 2.35 MIL/uL (4.50-6.20); RED CELL DISTRIBUTION WIDTH 18.3 % (11.0-15.5); WHITE BLOOD COUNT (AUTO) 3.3 K/uL (4.8-10.8)
[2017-05-28 04:09] LABS: HEMATOCRIT 20.2 % (42-54)
[2017-05-28 04:18] LABS: CREATININE 4.1 mg/dL (0.5-1.5); MAGNESIUM 2.5 mg/dL (1.80-2.40); PHOSPHORUS 6.1 mg/dL (2.5-4.9); POTASSIUM 4.9 mmol/L (3.5-5.1)
[2017-05-28 04:23] LABS: % IRON SATURATION 19.5 % (30-44)
[2017-05-28] MEDS ORDERED: SODIUM CHLORIDE 0.9% 250 ML IV ONE (04:40)
[2017-05-28 04:41] LABS: BAND NEUTROPHILS % (MANUAL) 2 % (0-2); EOSINOPHILS % (MANUAL) 3 % (1-6); LYMPHOCYTES % (MANUAL) 15 % (22-44); MAN.DIFF COMMENT-IMPRESSION MANUAL DIFFERENTIAL; MONOCYTES % (MANUAL) 3 % (2-9); SEGMENTED NEUTROPHILS % 77 % (40-70)
[2017-05-28 04:42] LABS: PLATELET MORPHOLOGY COMMENT MARKED DECREASED
[2017-05-28] MEDS: MEROPENEM 500 MG VIAL IVP SCH ×3 (05:04→22:18)
[2017-05-28] MEDS ORDERED: FUROSEMIDE 10 MG/ML 4ML VIAL IV SCH (09:00)
[2017-05-28] MEDS: PANTOPRAZOLE 40 MG/VIAL IVP SCH ×2 (09:41→22:24)
[2017-05-28] MEDS: LEVOFLOXACIN 750 MG/D5W 150 ML 150 ML IV SCH (09:41)
[2017-05-28] MEDS: MIDODRINE HCL 5 MG TABLET PO SCH ×3 (09:41→22:25)
[2017-05-28] MEDS: FLUCONAZOLE 200 MG/NS 100 ML 100 ML IV SCH (09:41)
[2017-05-28] MEDS: INSULIN HUMULIN R 100 UNIT/ML 3ML SQ SCH ×3 (11:30→22:40)
[2017-05-28] MEDS: FOLIC ACID 5 MG/ML 10 ML VIAL IV SCH (17:52)
[2017-05-29] VITALS (13 sets, daily range): BP systolic 98–143; BP diastolic 40–79
[2017-05-29] MEDS: ARTIFICAL TEARS SOL 15 ML OU SCH ×4 (02:04→17:30)
[2017-05-29] MEDS: MEROPENEM 500 MG VIAL IVP SCH (05:35)
[2017-05-29] MEDS: INSULIN HUMULIN R 100 UNIT/ML 3ML SQ SCH ×2 (07:17→11:13)
[2017-05-29] MEDS: PANTOPRAZOLE 40 MG/VIAL IVP SCH ×2 (08:32→20:17)
[2017-05-29] MEDS: LEVOFLOXACIN 750 MG/D5W 150 ML 150 ML IV SCH (08:33)
[2017-05-29] MEDS: MIDODRINE HCL 5 MG TABLET PO SCH (08:33)
[2017-05-29] MEDS: FLUCONAZOLE 200 MG/NS 100 ML 100 ML IV SCH (08:33)
[2017-05-29] MEDS ORDERED: LACTULOSE 20 GM/30 ML UDCUP PO SCH (09:00)
[2017-05-29] MEDS ORDERED: ONDANSETRON HCL 4 MG/2 ML VIAL IVP PRN (09:45)
[2017-05-29] MEDS: HYDROMORPHONE 1 MG/1 ML AMP IVP PRN ×3 (13:11→20:18)
[2017-05-29] MEDS: LORAZEPAM 2 MG/ML 1 ML VIAL IVP PRN ×3 (13:43→23:16)
[2017-05-30] VITALS: BP 108/56
[2017-05-30] MEDS: HYDROMORPHONE 1 MG/1 ML AMP IVP PRN ×3 (00:32→09:59)
[2017-05-30] MEDS: ARTIFICAL TEARS SOL 15 ML OU SCH ×2 (00:32→05:49)
[2017-05-30] MEDS: LORAZEPAM 2 MG/ML 1 ML VIAL IVP PRN (02:18)
[2017-05-30 04:00] VITALS: BP 112/51
[2017-05-30 08:00] VITALS: BP 117/51
[2017-05-30] MEDS: PANTOPRAZOLE 40 MG/VIAL IVP SCH (09:10)
== END 2017-05-30 10:14 | disposition hospice, inpatient (51) | DRG 710 ==
LOC: EDH 10:24 → EDHIP 10:25 → 2CH 15:15 → 2BH 05-18 17:11
PROVIDERS: ADMIT Family Medicine; ATTEND Family Medicine
PROC: 5A1955Z Respiratory Ventilation, Greater than 96 Consecutive Hours (ICD-10-PCS; principal; 2017-05-15)
PROC: 0BH17EZ Insertion of Endotracheal Airway into Trachea, Via Natural or Artificial Opening (ICD-10-PCS; 2017-05-15)
PROC: 0DJ08ZZ Inspection of Upper Intestinal Tract, Via Natural or Artificial Opening Endoscopic (ICD-10-PCS; 2017-05-15)
PROC: 30233L1 Transfusion of Nonautologous Fresh Plasma into Peripheral Vein, Percutaneous Approach (ICD-10-PCS; 2017-05-15)
PROC: 30233N1 Transfusion of Nonautologous Red Blood Cells into Peripheral Vein, Percutaneous Approach (ICD-10-PCS; 2017-05-15)
PROC: 05PY03Z Removal of Infusion Device from Upper Vein, Open Approach (ICD-10-PCS; 2017-05-16)
PROC: 05H633Z Insertion of Infusion Device into Left Subclavian Vein, Percutaneous Approach (ICD-10-PCS; 2017-05-16)
PROC: 02HV33Z Insertion of Infusion Device into Superior Vena Cava, Percutaneous Approach (ICD-10-PCS; 2017-05-16)
DX: A41.9 Sepsis, unspecified organism (principal); J96.00 Acute respiratory failure, unspecified whether with hypoxia or hypercapnia; K76.7 Hepatorenal syndrome; N17.0 Acute kidney failure with tubular necrosis; R65.21 Severe sepsis with septic shock; G93.40 Encephalopathy, unspecified; K55.9 Vascular disorder of intestine, unspecified; Z51.5 Encounter for palliative care; Z66 Do not resuscitate; I85.01 Esophageal varices with bleeding; G93.41 Metabolic encephalopathy; E11.22 Type 2 diabetes mellitus with diabetic chronic kidney disease; D50.0 Iron deficiency anemia secondary to blood loss (chronic); E87.5 Hyperkalemia; N18.9 Chronic kidney disease, unspecified; D68.9 Coagulation defect, unspecified; D69.6 Thrombocytopenia, unspecified; E66.9 Obesity, unspecified; E86.0 Dehydration; E87.0 Hyperosmolality and hypernatremia; F10.10 Alcohol abuse, uncomplicated; I47.1 Supraventricular tachycardia; I85.11 Secondary esophageal varices with bleeding; K70.31 Alcoholic cirrhosis of liver with ascites; F31.9 Bipolar disorder, unspecified; F20.9 Schizophrenia, unspecified; K72.90 Hepatic failure, unspecified without coma; Z82.49 Family history of ischemic heart disease and other diseases of the circulatory system; Z86.73 Personal history of transient ischemic attack (TIA), and cerebral infarction without residual deficits; Z68.37 Body mass index [BMI] 37.0-37.9, adult; Z88.8 Allergy status to other drugs, medicaments and biological substances
CPT/HCPCS: 31500; 36415; 36430; 36600; 70450; 71010; 71045; 80048; 80053; 80202; 81001; 82140; 82270; 82330; 82435; 82533; 82550; 82553; 82570; 82803; 82947; 82948; 83540; 83550; 83605; 83735; 84100; 84132; 84295; 84300; 84484; 85014; 85018; 85025; 85027; 85384; 85610; 85730; 86850; 86900; 86901; 86922; 86927; 87040; 87071; 87088; 87186; 93005; 94002; 94003; A4218; A4330; A4344; B4081; C1751; C1894; C9113; J0330; J0610; J0696; J1170; J1450; J1815; J1940; J1956; J2060; J2185; J2354; J2370; J2405; J2704; J3010; J3370; J3411; J3430; J3490; J7030; J7040; J7042; J7060; J7070; P9012; P9016; P9017; P9045

== ENCOUNTER 2017-05-30 10:15 | Inpatient (IN) | payer OTHER ==
[~2017-05-30] VITALS: Ht 177.8 cm; Wt 117.9 kg
[2017-05-30] MEDS ORDERED: PHARMACY COMMUNICATION MISC SCH (14:00)
[2017-05-30] MEDS ORDERED: ONDANSETRON HCL 4 MG/2 ML VIAL IVP PRN (14:00)
[2017-05-30] MEDS ORDERED: GLYCOPYRROLATE 0.2 MG/ML 5 ML VIAL IM SCH (14:00)
[2017-05-30] MEDS ORDERED: ACETAMINOPHEN 650 MG SUPPOSITORY RC PRN (14:00)
[2017-05-30] MEDS ORDERED: BISACODYL 10 MG SUPP.RECT RC PRN (14:00)
[2017-05-30] MEDS: GLYCOPYRROLATE 1 MG/5 ML SYRINGE IV SCH ×3 (15:00→22:21)
[2017-05-30] MEDS: HYDROMORPHONE 1 MG/1 ML AMP IVP PRN (18:17)
[2017-05-30 20:13] VITALS: BP 128/60
[2017-05-30] MEDS: LORAZEPAM 2 MG/ML 1 ML VIAL IVP PRN (21:00)
[2017-05-31] MEDS: HYDROMORPHONE 1 MG/1 ML AMP IVP PRN ×2 (01:57→16:59)
[2017-05-31] MEDS: GLYCOPYRROLATE 1 MG/5 ML SYRINGE IV SCH ×5 (01:57→17:44)
[2017-05-31] MEDS: LORAZEPAM 2 MG/ML 1 ML VIAL IVP PRN (05:27)
[2017-05-31 08:10] VITALS: BP 112/56
== END 2017-05-30 11:14 | disposition hospice, inpatient (51) | DRG 379 ==
LOC: 2BH 10:15
PROVIDERS: ADMIT Family Medicine; ATTEND Family Medicine
DX: K92.2 Gastrointestinal hemorrhage, unspecified (principal); E11.9 Type 2 diabetes mellitus without complications; Z66 Do not resuscitate; Z88.0 Allergy status to penicillin; Z82.3 Family history of stroke; Z83.3 Family history of diabetes mellitus
CPT/HCPCS: J1170; J2060; J3490

== ENCOUNTER 2017-05-30 11:15 | Inpatient (IN) | payer OTHER ==
[~2017-05-30] VITALS: Ht 175.3 cm; Wt 108.9 kg
[2017-05-31 21:00] VITALS: BP 122/60
[2017-05-31] MEDS ORDERED: HYDROMORPHONE 1 MG/1 ML AMP IVP PRN (22:00)
[2017-05-31] MEDS ORDERED: ONDANSETRON HCL 4 MG/2 ML VIAL IVP PRN (22:00)
[2017-05-31] MEDS ORDERED: BISACODYL 10 MG SUPP.RECT RC PRN (22:00)
[2017-05-31] MEDS ORDERED: ACETAMINOPHEN 650 MG SUPPOSITORY RC PRN (22:00)
[2017-05-31] MEDS: GLYCOPYRROLATE 1 MG/5 ML SYRINGE IV SCH (22:29)
[2017-05-31 23:30] VITALS: BP 111/52
[2017-06-01] MEDS: GLYCOPYRROLATE 1 MG/5 ML SYRINGE IV SCH ×6 (02:04→23:03)
[2017-06-01 09:05] VITALS: BP 121/52
[2017-06-01] MEDS: FUROSEMIDE 10 MG/ML 4ML VIAL IV SCH (16:08)
[2017-06-01] MEDS: LORAZEPAM 2 MG/ML 1 ML VIAL IVP PRN (21:50)
[2017-06-02 00:03] VITALS: BP 113/44
[2017-06-02] MEDS: FUROSEMIDE 10 MG/ML 4ML VIAL IV SCH ×3 (02:29→23:56)
[2017-06-02] MEDS: GLYCOPYRROLATE 1 MG/5 ML SYRINGE IV SCH ×6 (05:43→22:35)
[2017-06-02] MEDS: LORAZEPAM 2 MG/ML 1 ML VIAL IVP PRN ×3 (09:10→17:22)
[2017-06-02 11:23] VITALS: BP 84/45
[2017-06-02] MEDS ORDERED: HYDROMORPHONE HCL 2 MG/ML VIAL ONE ×2 (20:28→23:50)
[2017-06-02 23:50] VITALS: BP 103/60
[2017-06-03] MEDS: GLYCOPYRROLATE 1 MG/5 ML SYRINGE IV SCH ×5 (02:47→19:31)
[2017-06-03] MEDS ORDERED: PHARMACY COMMUNICATION MISC SCH ×2 (03:00→14:15)
[2017-06-03] MEDS ORDERED: HYDROMORPHONE HCL 2 MG/ML VIAL IVP PRN (04:03)
[2017-06-03 07:00] VITALS: BP 118/55
[2017-06-03] MEDS: FUROSEMIDE 10 MG/ML 4ML VIAL IV SCH (11:10)
[2017-06-03] MEDS: LORAZEPAM 2 MG/ML 1 ML VIAL IVP PRN (11:11)
[2017-06-03] MEDS ORDERED: HYDROMORPHONE PCA 10MG/50 ML ( 0.2 MG/ML ) IV PRN (14:30)
[2017-06-03] MEDS: LORAZEPAM 2 MG/ML 1 ML VIAL IVP SCH ×2 (15:29→19:32)
[2017-06-03] MEDS ORDERED: SODIUM CHLORIDE 0.9% 250 ML IV ONE (19:00)
[2017-06-03 19:58] VITALS: BP 101/63
[2017-06-04] MEDS: GLYCOPYRROLATE 1 MG/5 ML SYRINGE IV SCH ×7 (00:10→22:49)
[2017-06-04] MEDS: FUROSEMIDE 10 MG/ML 4ML VIAL IV SCH ×2 (00:10→12:36)
[2017-06-04] MEDS: LORAZEPAM 2 MG/ML 1 ML VIAL IVP SCH ×4 (01:17→18:47)
[2017-06-04 07:00] VITALS: BP 108/63
[2017-06-04 11:00] VITALS: BP 108/69
[2017-06-04 23:50] VITALS: BP 93/48
[2017-06-05] MEDS: LORAZEPAM 2 MG/ML 1 ML VIAL IVP SCH ×5 (00:50→23:21)
[2017-06-05] MEDS: FUROSEMIDE 10 MG/ML 4ML VIAL IV SCH ×3 (00:51→23:22)
[2017-06-05] MEDS: GLYCOPYRROLATE 1 MG/5 ML SYRINGE IV SCH ×6 (02:26→23:21)
[2017-06-05 07:58] VITALS: BP 95/43
[2017-06-05 23:42] VITALS: BP 85/39
[2017-06-06 03:50] VITALS: BP 95/35
[2017-06-06] MEDS: GLYCOPYRROLATE 1 MG/5 ML SYRINGE IV SCH ×5 (04:50→17:51)
[2017-06-06] MEDS: LORAZEPAM 2 MG/ML 1 ML VIAL IVP SCH ×3 (06:21→17:52)
[2017-06-06 08:15] VITALS: BP 95/40
[2017-06-06] MEDS: FUROSEMIDE 10 MG/ML 4ML VIAL IV SCH (13:38)
[2017-06-06] MEDS ORDERED: SCOPOLAMINE HYDROBROMIDE 1 EACH ADH..PATCH TD SCH (15:45)
== END 2017-06-06 20:28 | disposition expired | DRG 432 ==
LOC: 2BH 11:15 → MERGE 11:15 → 3AH 05-31 22:47
PROVIDERS: ADMIT Family Medicine; ATTEND Family Medicine
DX: K74.60 Unspecified cirrhosis of liver (principal); J96.00 Acute respiratory failure, unspecified whether with hypoxia or hypercapnia; G93.41 Metabolic encephalopathy; D68.9 Coagulation defect, unspecified; K92.2 Gastrointestinal hemorrhage, unspecified; Z66 Do not resuscitate; D64.9 Anemia, unspecified; Z88.0 Allergy status to penicillin
CPT/HCPCS: J1170; J1940; J2060; J3490; J7030